=== PATIENT | female | born 1960 | race Caucasian/White ===

== ENCOUNTER 2023-05-07 09:58 | Emergency (ER) | payer OTHER, SELFPAY ==
[2023-05-07 10:02] VITALS: BP 153/74
--- NOTE | 2023-05-07 11:02 | ED.GENMED ---
History of Present Illness
<Cassandra Arreguin PA-C - Last Filed: 05/07/23 13:11>
General
Chief Complaint: Chest Pain
Source: patient
Exam Limitations: none
Time Seen by Provider: 05/07/23 11:02
Nursing documentation reviewed up to this point in time: agreed with
Travel History
Have you had any contact with someone who has COVID-19?: No
Do you have any symptoms of coronavirus? Fever > 100 degrees, chills, cough, shortness of breath, sore throat, loss of taste or smell, muscle aches, or headache?: No
History of Present Illness
History of Present Illness:
63 y/o female with PMH of osteoporosis presenting emergency department today with chest pain that started yesterday around 4 PM. Patient states that the pain came on after taking her maxalt migraine medication. Patient has been on this medication
for many years. Patient states that the pain is constant however it does wax and wane in severity. She states that she experiences the pain yesterday region as well as the sternal area. Patient denies nausea, vomiting, shortness of breath,
abdominal pain, dizziness, lightheadedness, recent illnesses, fevers or chills. Patient denies recent long distance travel, lower extremity pain/swelling, exogenous estrogen. Patient states that the pain does not radiate anywhere. She went to bed
last night thinking with nothing, however she woke up and still had the pain. Patient denies any falls, any trauma to the chest wall. Patient denies any personal history or family history of cardiac disease.
Past History
<Cassandra Arreguin PA-C - Last Filed: 05/07/23 13:11>
Past History
ED Past Medical History: Other (Cervical stenosis)
ED Past Surgical History: Tonsilectomy; Negative Appendectomy, Bowel resection, Cholecystectomy, or Gynecological
Social History
Tobacco: Non-smoker
Alcohol: Occasional
Drug: None
Personal:
Living: with family
Employment: Employed
Family History
Family History: Other (Noncontributory)
Review of Systems
<Cassandra Arreguin PA-C - Last Filed: 05/07/23 13:11>
Review of Systems
All Other Systems: ROS reviewed and negative except as documented in HPI and ROS
Phy Exam
<Cassandra Arreguin PA-C - Last Filed: 05/07/23 13:11>
Physical Exam
Physical Exam:
General: Patient is well-appearing, no acute distress
Skin: Warm and dry, no rashes or lesion
Head: Normocephalic, atraumatic
Cardiac: Regular rate rhythm, no murmurs. No tenderness external chest wall.
Pulmonary: Normal respiratory effort, no wheezes, rales, rhonchi.
Abdomen: Abdomen is nondistended, no palpable masses. No epigastric tenderness palpation.
Neuro: Patient is awake and alert, cranial nerves II through XII intact
Scores
<ISIAH Vásquez Last Filed: 05/07/23 13:11>
Heart Score for Chest Pain Patients
STEMI patient?: No
History: Slightly or Non-Suspicious
ECG: Normal
Age: >45 - <65 years
Risk Factors: 1 or 2 Risk Factors
Troponin: </= Normal Limit
Heart Score for Chest Pain Patients: 2
Heart Score Risk: 2.5% MACE over next 6 weeks
Course
<ISIAH Vásquez Last Filed: 05/07/23 13:11>
Orders/Labs/Results
Orders:
Orders
05/07/23 10:05
Electrocardiogram (*1) Urgent
Reason for Study: Chest Pain
EKG- Treatment ONCE
05/07/23 11:04
IV Insert/Care/Rem.- Treatment PRN
05/07/23 11:14
Complete Blood Count/With Diff Urgent
Comprehensive Metabolic Panel Urgent
Lipase Urgent
Comment: LIPASE ADDED ON BY EDUARDO 11:45AM 05-07-23
Troponin I Urgent
05/07/23 11:44
Add On- LAB Urgent
Tests Added?: lipase
05/07/23 11:14
05/07/23 11:14
Vital Signs
Initial and Last Documented VS:
Initial Vital Signs
Temp Pulse Resp BP Pulse Ox
98.2 F 76 16 153/74 98
05/07/23 10:02 05/07/23 10:02 05/07/23 10:02 05/07/23 10:02 05/07/23 10:02
Last Documented Vital Signs
Temp Pulse Resp BP Pulse Ox
98.2 F 62 15 118/74 96
05/07/23 10:02 05/07/23 12:30 05/07/23 12:30 05/07/23 12:00 05/07/23 12:30
<Stoney Ryan, DO - Last Filed: 05/07/23 11:44>
Orders/Labs/Results
Orders:
Orders
05/07/23 10:05
Electrocardiogram (*1) Urgent
Reason for Study: Chest Pain
EKG- Treatment ONCE
05/07/23 11:04
IV Insert/Care/Rem.- Treatment PRN
05/07/23 11:14
Complete Blood Count/With Diff Urgent
Comprehensive Metabolic Panel Urgent
Lipase Urgent
Comment: LIPASE ADDED ON BY EDUARDO 11:45AM 05-07-23
Troponin I Urgent
05/07/23 11:44
Add On- LAB Urgent
Tests Added?: lipase
05/07/23 11:14
05/07/23 11:14
Vital Signs
Initial and Last Documented VS:
Initial Vital Signs
Temp Pulse Resp BP Pulse Ox
98.2 F 76 16 153/74 98
05/07/23 10:02 05/07/23 10:02 05/07/23 10:02 05/07/23 10:02 05/07/23 10:02
Last Documented Vital Signs
Temp Pulse Resp BP Pulse Ox
98.2 F 62 15 118/74 96
05/07/23 10:02 05/07/23 12:30 05/07/23 12:30 05/07/23 12:00 05/07/23 12:30
<Cassandra Arreguin PA-C - Last Filed: 05/07/23 13:11>
MDM/Problems Addressed
Differential Diagnosis Includes:
Differentials include GERD, costochondritis, musculoskeletal sprain/strain, ACS,
Chronic conditions affecting care:
n/a
Acute Exacerbation and/or Progression of Chronic Illness:
n/a
<Cassandra Arreguin PA-C - Last Filed: 05/07/23 13:11>
*Pulse Oximetry
Patient hypoxic: no
*EKG
Interpreted by ED Provider?: Yes
EKG Intrepretation Date: 05/07/23
Interpretation: normal
Comparison EKG: no changes
Heart Rate: 72
Rate: normal
Rhythm: sinus
[place]: normal axis
Interval: normal interval, normal QT interval and normal RI interval
QRS Pattern: normal QRS
Ischemia: no ischemia
*Critical Care Note
Total Time (30-74mins, 75-104mins- exclusive of procedures): Not Applicable
Data Reviewed
Review of Other/Old Records Reveals: Records (Reviewed ER physician documentation from 06/04/2015) and Discharge Summary (Reviewed discharge summary from 06/08/2015)
Source: patient, records and family
Prescriptions/Medications Considered But Not Given:
considered pepcid however patient's symptoms seem to be not related to food
<Cassandra Arreguin PA-C - Last Filed: 05/07/23 13:11>
Patient Management
Escalation/DeEscalation of care consider admission/obs:
63 y/o female with PMH of osteoporosis presenting emergency department today with chest pain that started yesterday around 4 PM. Pain is not positional, not related to eating, nonpleuritic. She has no associated symptoms, no shortness of breath,
no dizziness, low no lower extremity pain or swelling. Emergency department, her EKG was read normal sinus rhythm, no ischemic changes. Her CBC and CMP are unremarkable. Her lipase is normal and her troponin is normal. Highly doubt ACS or
cardiac origin of her symptoms. Patient will follow-up with her primary regarding her symptoms, or return precautions. All patient's questions were answered.
ED Attending Note
<Cassandra Arreguin PA-C - Last Filed: 05/07/23 13:11>
-
Portions of this chart may have been created with voice recognition software.� Occasional wrong word or��sound alike� substitutions may have occurred due to the inherent limitations of voice recognition software.
<Stoney Ryan, - Last Filed: 05/07/23 11:44>
ED Attending Note
Patient seen and examined by attending physician: Yes
I performed a history and physical exam of patient and discussed management with resident, I reviewed resident's note and agree with documented findings and plan of care.: Yes
Discharge Plan
Departure
Patient Disposition: Home (Routine Discharge)
Date of Disposition: 05/07/23
Time of Disposition: 12:51
Patient with high blood pressure during this ER visit?: Yes
Condition: Good
Discharge Problem:
Chest pain
Instructions: Chest Pain That Is Not Caused by the Heart (DC), BLOOD PRESSURE
Prescriptions:
No Action
metronidazole 500 MG tablet
500 mg PO TID Qty: 7 0RF
Rx Instructions:
Take for 2 days
levofloxacin 500 MG tablet
500 mg PO DAILY Qty: 2 0RF
Rx Instructions:
Take for 2 days
rivaroxaban [Xarelto] 20 MG tablet
20 mg PO QPM Qty: 30 0RF
Referrals:
Georgette Baker MD [Family Provider] -
Activity Restrictions/Additional Instructions:
Please schedule follow-up appointment with your primary care provider.
Please return emergency department should you experience a worsening of your pain, shortness of breath, dizziness, lightheadedness, weakness, severe back pain, or other concerning signs or symptoms.
Interventions
Interventions:
*Risk Screen - Suicide Last Done: 05/07/23 11:17
*General Assessment Last Done: 05/07/23 11:17
*Neglect/Abuse Screening Last Done: 05/07/23 11:17
ED- Fall Risk Assessment Last Done: 05/07/23 11:17
*ED COVID-19 Vaccine History Last Done: 05/07/23 10:02
*Nursing Disposition Last Done: 05/07/23 13:08
ED- Cardiac Assessment Last Done: 05/07/23 11:17
[2023-05-07 11:16] VITALS: BP 148/89
[2023-05-07 11:17] VITALS: BMI 18.4
[2023-05-07 11:30] LABS: % Basophils 1.6 % (0-2); % Eosinophils 2.5 % (0-6); % Immature Granulocytes 0.2 % (0-0.5); % Lymphocytes 39.7 % (20.5-51.1); Absolute Basophils 0.1 10^3/uL (0-0.2); Absolute Eosinophils 0.1 10^3/uL (0-0.7); Absolute Lymphocytes 2.3 10^3/uL (1.2-3.4); Absolute Monocytes 0.4 10^3/uL (0.1-0.6); Absolute Neutrophils 2.8 10^3/uL (1.4-6.5); Hematocrit 42.7 % (37.0-47.0); Hemoglobin 14.4 g/dL (12.0-16.0); Mean Corp Hgb Conc. 33.7 g/dL (33.0-37.0); Mean Corpuscular Hgb 30.6 pg (27.0-31.0); Mean Corpuscular Volume 90.7 fL (81.0-99.0); Nucleated Red Blood Cells % 0 %; Platelet Count 265 10^3/uL (130-400); Red Blood Cell Count 4.71 10^6/uL (4.20-5.40); Red Cell Dist. Width 12.8 % (11.5-14.5); White Blood Cell Count 5.7 10^3/uL (4.8-10.8)
[2023-05-07 11:43] LABS: ALT (SGPT) 23 U/L (0-35); AST (SGOT) 30 U/L (14-36); Albumin 4.9 g/dl (3.5-5.0); Alkaline Phosphatase 49 U/L (38-126); Blood Urea Nitrogen 15 mg/dl (7-17); Calcium 9.7 mg/dl (8.4-10.2); Carbon Dioxide 29 mmol/L (22-30); Chloride 101 mmol/L (98-107); Estimated Creatinine Clearance 67 ml/min; Glucose 85 mg/dl (70-99); Sodium 137 mmol/L (135-145); Total Protein 7.8 g/dl (6.3-8.2); eGFR > 60.00
[2023-05-07 11:53] LABS: Troponin I < 0.012 ng/ml
[2023-05-07 12:00] VITALS: BP 118/74
[2023-05-07 12:48] LABS: Lipase 106 U/L (23-300)
== END 2023-05-07 13:09 | disposition home or self-care (01) ==
LOC: EMR 09:58
PROVIDERS: EMERGENCY PHYSICIAN Emergency Medicine; FAMILY PHYSICIAN Internal Medicine
DX: R07.89 Other chest pain (principal)
CPT/HCPCS: 99283; 80053; 83690; 84484; 85025; 93005

== ENCOUNTER → 2023-09-30 13:38 | Outpatient (REF) | payer OTHER, SELFPAY ==
[2023-09-30 17:02] LABS: ALT (SGPT) 21 U/L (0-35); AST (SGOT) 31 U/L (14-36); Albumin 4.6 g/dl (3.5-5.0); Alkaline Phosphatase 71 U/L (38-126); Blood Urea Nitrogen 19 mg/dl (7-17); Calcium 10.1 mg/dl (8.4-10.2); Carbon Dioxide 31 mmol/L (22-30); Chloride 101 mmol/L (98-107); Glucose 78 mg/dl (70-99); Potassium 4.9 mmol/L (3.5-5.1); Sodium 136 mmol/L (135-145); Total Bilirubin 0.3 mg/dl (0.2-1.3); Total Protein 6.9 g/dl (6.3-8.2); eGFR > 60.00
== END ==
LOC: WDC 13:38
PROVIDERS: Internal Medicine Rheumatology; ATTENDING PHYSICIAN Obstetrics & Gynecology; FAMILY PHYSICIAN Internal Medicine
DX: Z12.31 Encounter for screening mammogram for malignant neoplasm of breast (principal); M81.0 Age-related osteoporosis without current pathological fracture
CPT/HCPCS: 36415; 77063; 77067; 77080; 80053; 82306

== ENCOUNTER → 2024-03-14 09:50 | Outpatient (REF) | payer OTHER, SELFPAY ==
[2024-03-14 10:11] LABS: % Basophils 1.1 % (0-2); % Eosinophils 2.7 % (0-6); % Immature Granulocytes 0.2 % (0-0.5); % Lymphocytes 39.4 % (20.5-51.1); % Monocytes 7.1 % (1.7-9.3); % Neutrophils 49.5 % (42.2-75.2); Absolute Basophils 0.1 10^3/uL (0-0.2); Absolute Eosinophils 0.2 10^3/uL (0-0.7); Absolute Lymphocytes 2.2 10^3/uL (1.2-3.4); Absolute Monocytes 0.4 10^3/uL (0.1-0.6); Absolute Neutrophils 2.8 10^3/uL (1.4-6.5); Hematocrit 39.7 % (37.0-47.0); Hemoglobin 13.3 g/dL (12.0-16.0); Mean Corp Hgb Conc. 33.5 g/dL (33.0-37.0); Mean Corpuscular Hgb 30.8 pg (27.0-31.0); Mean Corpuscular Volume 91.9 fL (81.0-99.0); Nucleated Red Blood Cells % 0 %; Platelet Count 250 10^3/uL (130-400); Red Blood Cell Count 4.32 10^6/uL (4.20-5.40); Red Cell Dist. Width 13.2 % (11.5-14.5); White Blood Cell Count 5.6 10^3/uL (4.8-10.8)
[2024-03-14 10:35] LABS: ALT (SGPT) 19 U/L (0-35); AST (SGOT) 31 U/L (14-36); Albumin 4.5 g/dl (3.5-5.0); Alkaline Phosphatase 49 U/L (38-126); Blood Urea Nitrogen 13 mg/dl (7-17); Calcium 9.4 mg/dl (8.4-10.2); Carbon Dioxide 30 mmol/L (22-30); Chloride 103 mmol/L (98-107); Glucose 96 mg/dl (70-99); Potassium 4.7 mmol/L (3.5-5.1); Sodium 140 mmol/L (135-145); Total Bilirubin 0.7 mg/dl (0.2-1.3); Total Cholesterol 260 mg/dl (50-199); Total Protein 7.1 g/dl (6.3-8.2); Triglyceride 91 mg/dl (10-149); Very Low Density Lipoprotein 18 mg/dl (0-30); eGFR > 60.00
[2024-03-14 10:45] LABS: HDL Cholesterol 110 mg/dl; LDL Cholesterol, Calculated 132 mg/dl
== END ==
LOC: REG 09:50
PROVIDERS: ATTENDING PHYSICIAN Internal Medicine
DX: Z00.00 Encounter for general adult medical examination without abnormal findings (principal); E78.5 Hyperlipidemia, unspecified; R53.83 Other fatigue
CPT/HCPCS: 36415; 80053; 80061; 84443; 85025

== ENCOUNTER 2024-04-21 06:34 | Day surgery (SDC) | payer OTHER, SELFPAY | END 2024-04-21 10:50 | disposition home or self-care (01) | LOC: GI 06:34 | PROVIDERS: ATTENDING PHYSICIAN Internal Medicine | DX: Z12.11 Encounter for screening for malignant neoplasm of colon (principal); K57.30 Diverticulosis of large intestine without perforation or abscess without bleeding; K64.9 Unspecified hemorrhoids | CPT/HCPCS: G0121 ==

== ENCOUNTER → 2024-10-27 09:34 | Outpatient (REF) | payer OTHER, SELFPAY ==
[2024-10-27 11:03] LABS: ALT (SGPT) 21 U/L (0-35); AST (SGOT) 28 U/L (14-36); Albumin 4.7 g/dl (3.5-5.0); Alkaline Phosphatase 51 U/L (38-126); Blood Urea Nitrogen 14 mg/dl (7-17); Calcium 9.8 mg/dl (8.4-10.2); Carbon Dioxide 27 mmol/L (22-30); Chloride 106 mmol/L (98-107); Glucose 92 mg/dl (70-99); Potassium 5.0 mmol/L (3.5-5.1); Sodium 138 mmol/L (135-145); Total Protein 7.3 g/dl (6.3-8.2); eGFR > 60.00
[2024-10-27 11:24] LABS: Vitamin D, 25-OH*** 46.6 ng/mL (30-80)
[2024-10-29 12:32] LABS: CTx 195 pg/mL
== END ==
LOC: REG 09:34
PROVIDERS: ATTENDING PHYSICIAN Internal Medicine Rheumatology
DX: M81.0 Age-related osteoporosis without current pathological fracture (principal)
CPT/HCPCS: 36415; 80053; 82306; 82523; 83970; 84100; 84443

== ENCOUNTER → 2025-02-21 08:30 | Outpatient (REF) | payer OTHER, SELFPAY ==
[2025-02-21 09:21] LABS: Hematocrit 38.9 % (37.0-47.0); Hemoglobin 12.9 g/dL (12.0-16.0); Mean Corp Hgb Conc. 33.2 g/dL (33.0-37.0); Mean Corpuscular Volume 92.6 fL (81.0-99.0); Nucleated Red Blood Cells % 0 %; Platelet Count 240 10^3/uL (130-400); Red Cell Dist. Width 13.6 % (11.5-14.5)
[2025-02-21 10:08] LABS: ALT (SGPT) 19 U/L (0-35); AST (SGOT) 27 U/L (14-36); Albumin 4.4 g/dl (3.5-5.0); Alkaline Phosphatase 66 U/L (38-126); Blood Urea Nitrogen 14 mg/dl (7-17); Calcium 9.1 mg/dl (8.4-10.2); Carbon Dioxide 27 mmol/L (22-30); Chloride 105 mmol/L (98-107); Glucose 92 mg/dl (70-99); HDL Cholesterol 96 mg/dl; LDL Cholesterol, Calculated 151 mg/dl; Potassium 4.7 mmol/L (3.5-5.1); Sodium 137 mmol/L (135-145); Total Protein 7.3 g/dl (6.3-8.2); Very Low Density Lipoprotein 14 mg/dl (0-30); eGFR > 60.00
[2025-02-21 10:34] LABS: TSH 1.11 uIU/ml (0.47-4.68)
== END ==
LOC: REG 08:30
PROVIDERS: ATTENDING PHYSICIAN Internal Medicine
DX: Z00.00 Encounter for general adult medical examination without abnormal findings (principal); R53.83 Other fatigue; E78.5 Hyperlipidemia, unspecified
CPT/HCPCS: 36415; 80053; 80061; 84443; 85025